=== PATIENT | female | born 1930 | race Two or more races ===

== ENCOUNTER 2017-08-25 12:11 | Inpatient (IN) | payer OTHER ==
[~2017-08-25] VITALS: Ht 152.4 cm; Wt 54.4 kg
[2017-08-25 12:48] VITALS: BP 100/42
[2017-08-25] MEDS ORDERED: HUMULIN R100 UNIT/1 SUBQ (13:17)
[2017-08-25] MEDS ORDERED: LOVENOX10 MG SUBQ (13:17)
[2017-08-25] MEDS ORDERED: SODIUM CITRATE MC (13:17)
[2017-08-25] MEDS ORDERED: SIMVASTATIN20 MG ORAL (13:17)
[2017-08-25] MEDS ORDERED: LOSARTAN POTASS25 MG ORAL (13:17)
[2017-08-25] MEDS ORDERED: ZOFRAN4 M3 ORAL (13:18)
--- NOTE | 2017-08-25 13:34 | Emergency Room Report ---
History of Present Illness General Chief Complaint: Abnormal Labs Source: Patient, Medical Record (Zully Avila DO) Present Illness HPI Patient presents from nursing facility with reports of anemia Patient is a poor historian however is able to report that she has had previous transfusions she does feel weaker than usual Denies any chest pain or shortness of breath has some increased fatigue with exertion Denies any abdominal pain denies any black stools or vomiting denies any recent trauma (Zully Avila DO) Allergies: Coded Allergies: No Known Allergies (Unverified , 08/25/17) Patient History Past Medical History: see triage record Pertinent Family History: none Reviewed Nursing Documentation: PMH: Agreed; PSxH: Agreed (Zully Avila DO) Nursing Documentation-PMH Hx Cardiac Problems: Yes - A-FIB Hx Hypertension: Yes - HYPERLIPEDEMA Hx Diabetes: Yes (Zully Avila DO) Review of Systems All Other Systems: negative except mentioned in HPI (Zully Avila DO) Physical Exam Vital Signs Date Time Temp Pulse Resp B/P (MAP) Pulse Ox O2 Delivery O2 Flow Rate FiO2 08/25/17 12:19 98.0 76 16 110/60 99 Room Air 98.1 Sp02 EP Interpretation: reviewed, normal General Appearance: no apparent distress Head: normocephalic, atraumatic Eyes: bilateral eye PERRL, bilateral eye EOMI, bilateral eye other - pale conjunctiva ENT: hearing grossly normal, normal pharynx, TMs + canals normal, uvula midline Neck: full range of motion, supple, no meningismus, no bony tend Respiratory: lungs clear, normal breath sounds, no rhonchi, no respiratory distress, no retraction, no accessory muscle use Cardiovascular #1: normal peripheral pulses, no edema, no gallop, no JVD, no murmur, irregularly irregular Gastrointestinal: normal bowel sounds, non tender, soft, no mass, no organomegaly, non-distended, no guarding, no hernia, no pulsatile mass, no rebound Genitourinary: no CVA tenderness Musculoskeletal: other - Moving both upper extremities without focal deficit Neurologic: responsive, sensory intact Psychiatric: mood/affect normal Skin: no rash, warm/dry, palpation normal, pallor Lymphatic: normal inspection, no adenopathy (uZlly Avila DO) Medical Decision Making Diagnostic Impression: Primary Impression: Symptomatic anemia Additional Impressions: Renal failure Hyperkalemia ER Course Patient is a fairly complex patient with multiple differential to consideration including but not limited to , intra-abdominal , GI pathology cardiac cardiopulmonary and vascular emergencies Patient's blood work obtained does reveal anemia patient has been typed and screened and requires further inpatient care Patient's kidney function also abnormal with hyperkalemia Patient however does have diarrhea already Labs Test 08/25/17 13:15 08/25/17 14:15 White Blood Count 9.5 K/UL (4.8-10.8) Red Blood Count 3.37 M/UL (4.20-5.40) Hemoglobin 8.1 G/DL (12.0-16.0) Hematocrit 26.7 % (37.0-47.0) Mean Corpuscular Volume 79 FL (80-99) Mean Corpuscular Hemoglobin 24.0 PG (27.0-31.0) Mean Corpuscular Hemoglobin Concent 30.3 G/DL (32.0-36.0) Red Cell Distribution Width 21.8 % (11.6-14.8) Platelet Count 797 K/UL (150-450) Mean Platelet Volume 5.6 FL (6.5-10.1) Neutrophils (%) (Auto) 77.3 % (45.0-75.0) Lymphocytes (%) (Auto) 14.5 % (20.0-45.0) Monocytes (%) (Auto) 6.8 % (1.0-10.0) Eosinophils (%) (Auto) 0.5 % (0.0-3.0) Basophils (%) (Auto) 0.9 % (0.0-2.0) Prothrombin Time 10.3 SEC (9.30-11.50) Prothromb Time International Ratio 1.0 (0.9-1.1) Activated Partial Thromboplast Time 30 SEC (23-33) Sodium Level 134 MMOL/L (136-145) Potassium Level 5.3 MMOL/L (3.5-5.1) Chloride Level 111 MMOL/L (98-107) Carbon Dioxide Level 15 MMOL/L (21-32) Anion Gap 8 mmol/L (5-15) Blood Urea Nitrogen 56 mg/dL (7-18) Creatinine 2.4 MG/DL (0.55-1.30) Estimat Glomerular Filtration Rate mL/min (>60) Glucose Level 109 MG/DL (74-106) Calcium Level 7.9 MG/DL (8.5-10.1) Total Bilirubin 0.2 MG/DL (0.2-1.0) Aspartate Amino Transf (AST/SGOT) 19 U/L (15-37) Alanine Aminotransferase (ALT/SGPT) 10 U/L (12-78) Alkaline Phosphatase 62 U/L (46-116) Total Creatine Kinase 50 U/L (26-308) Creatine Kinase MB 1.8 NG/ML (0.0-3.6) Creatine Kinase MB Relative Index 3.6 Troponin I 0.003 ng/mL (0.000-0.056) Total Protein 6.1 G/DL (6.4-8.2) Albumin 1.7 G/DL (3.4-5.0) Globulin 4.3 g/dL Lipase 122 U/L (73-393) (Zully Avila DO) ER Course Patient was noted to have evidence of acute kidney injury. The urinalysis showed evidence of infection.The patient was given IV antibiotics. EKG showed atrial fibrillation with a rate of [address] Nikolai Armendariz was contacted for inpatient management due to capitated physician Labs Test 08/25/17 13:15 08/25/17 14:15 White Blood Count 9.5 K/UL (4.8-10.8) Red Blood Count 3.37 M/UL (4.20-5.40) Hemoglobin 8.1 G/DL (12.0-16.0) Hematocrit 26.7 % (37.0-47.0) Mean Corpuscular Volume 79 FL (80-99) Mean Corpuscular Hemoglobin 24.0 PG (27.0-31.0) Mean Corpuscular Hemoglobin Concent 30.3 G/DL (32.0-36.0) Red Cell Distribution Width 21.8 % (11.6-14.8) Platelet Count 797 K/UL (150-450) Mean Platelet Volume 5.6 FL (6.5-10.1) Neutrophils (%) (Auto) 77.3 % (45.0-75.0) Lymphocytes (%) (Auto) 14.5 % (20.0-45.0) Monocytes (%) (Auto) 6.8 % (1.0-10.0) Eosinophils (%) (Auto) 0.5 % (0.0-3.0) Basophils (%) (Auto) 0.9 % (0.0-2.0) Prothrombin Time 10.3 SEC (9.30-11.50) Prothromb Time International Ratio 1.0 (0.9-1.1) Activated Partial Thromboplast Time 30 SEC (23-33) Sodium Level 134 MMOL/L (136-145) Potassium Level 5.3 MMOL/L (3.5-5.1) Chloride Level 111 MMOL/L (98-107) Carbon Dioxide Level 15 MMOL/L (21-32) Anion Gap 8 mmol/L (5-15) Blood Urea Nitrogen 56 mg/dL (7-18) Creatinine 2.4 MG/DL (0.55-1.30) Estimat Glomerular Filtration Rate mL/min (>60) Glucose Level 109 MG/DL (74-106) Calcium Level 7.9 MG/DL (8.5-10.1) Total Bilirubin 0.2 MG/DL (0.2-1.0) Aspartate Amino Transf (AST/SGOT) 19 U/L (15-37) Alanine Aminotransferase (ALT/SGPT) 10 U/L (12-78) Alkaline Phosphatase 62 U/L (46-116) Total Creatine Kinase 50 U/L (26-308) Creatine Kinase MB 1.8 NG/ML (0.0-3.6) Creatine Kinase MB Relative Index 3.6 Troponin I 0.003 ng/mL (0.000-0.056) Total Protein 6.1 G/DL (6.4-8.2) Albumin 1.7 G/DL (3.4-5.0) Globulin 4.3 g/dL Lipase 122 U/L (73-393) Urine Color Yellow Urine Appearance Very cloudy Urine pH 5 (4.5-8.0) Urine Specific [place] 1.020 (1.005-1.035) Urine Protein 2+ (NEGATIVE) Urine Glucose (UA) Negative (NEGATIVE) Urine Ketones Negative (NEGATIVE) Urine Occult Blood 3+ (NEGATIVE) Urine Nitrite Negative (NEGATIVE) Urine Bilirubin Negative (NEGATIVE) Urine Urobilinogen Normal MG/DL (0.0-1.0) Urine Leukocyte Esterase 3+ (NEGATIVE) Urine RBC 10-15 /HPF (0 - 2) Urine WBC Tntc /HPF (0 - 2) Urine Squamous Epithelial Cells Moderate /LPF (NONE/OCC) Urine Amorphous Sediment Many /LPF (NONE) Urine Bacteria Moderate /HPF (NONE) Urine Yeast Few /HPF (NONE) (Isaac Finn) Rhythm Strip Diag. Results EP Interpretation: yes Rate: 77 Rhythm: no PVC's, no ectopy, other - irregularly irregular (Zully Avila DO) Chest X-Ray Diagnostic Results Chest X-Ray Diagnostic Results : Chest X-Ray Ordered: Yes # of Views/Limited/Complete: 1 View Indication: Shortness of Breath EP Interpretation: Yes Interpretation: no consolidation, no pneumothorax, other - basilar atelectasis Impression: No acute disease Electronically Signed by: Zully Avila DO (Zully Avila DO) Last Vital Signs Date Time Temp Pulse Resp B/P (MAP) Pulse Ox O2 Delivery O2 Flow Rate FiO2 08/25/17 12:48 74 13 100/42 100 Room Air 08/25/17 12:19 98.0 98.1 Status: improved (Zully Avila DO) Status: unchanged (Isaac Finn) Disposition: ADMITTED INPATIENT Condition: Serious Zully Avila DO Aug 25, 2017 13:34 Isaac Finn Aug 25, 2017 15:11
[2017-08-25 13:40] LABS: BASOPHILS % (AUTO) 0.9 % (0.0-2.0); EOSINOPHILS % (AUTO) 0.5 % (0.0-3.0); HEMATOCRIT 26.7 % (37.0-47.0); HEMOGLOBIN 8.1 G/DL (12.0-16.0); LYMPHOCYTES % (AUTO) 14.5 % (20.0-45.0); MEAN CORPUSCULAR VOLUME 79 FL (80-99); MONOCYTES % (AUTO) 6.8 % (1.0-10.0); NEUTROPHILS % (AUTO) 77.3 % (45.0-75.0); PLATELET COUNT 797 K/UL (150-450); RED BLOOD COUNT 3.37 M/UL (4.20-5.40); RED CELL DISTRIBUTION WIDTH 21.8 % (11.6-14.8); WHITE BLOOD COUNT 9.5 K/UL (4.8-10.8)
[2017-08-25 13:58] LABS: ANION GAP 8 mmol/L (5-15); BLOOD UREA NITROGEN 56 mg/dL (7-18); CALCIUM 7.9 MG/DL (8.5-10.1); CARBON DIOXIDE 15 MMOL/L (21-32); CHLORIDE 111 MMOL/L (98-107); CREATININE 2.4 MG/DL (0.55-1.30); POTASSIUM 5.3 MMOL/L (3.5-5.1); SODIUM 134 MMOL/L (136-145)
[2017-08-25 14:10] LABS: ALANINE AMINOTRANSFERASE 10 U/L (12-78); ALKALINE PHOSPHATASE 62 U/L (46-116); ASPARTATE AMINO TRANSFERASE 19 U/L (15-37); BILIRUBIN,TOTAL 0.2 MG/DL (0.2-1.0); CKMB 1.8 NG/ML (0.0-3.6); CREATINE KINASE 50 U/L (26-308)
[2017-08-25 14:17] LABS: ALBUMIN 1.7 G/DL (3.4-5.0)
[2017-08-25 14:34] LABS: APPEARANCE,URINE VERY CLOUDY; BILIRUBIN, URINE NEGATIVE (NEGATIVE); COLOR,URINE YELLOW; GLUCOSE, URINE (UA) NEGATIVE (NEGATIVE); KETONES,URINE NEGATIVE (NEGATIVE); LEUKOCYTE ESTERASE ,URINE 3+ (NEGATIVE); NITRITE,URINE NEGATIVE (NEGATIVE); PH,URINE 5 (4.5-8.0); PROTEIN,URINE 2+ (NEGATIVE); UROBILINOGEN,URINE NORMAL MG/DL (0.0-1.0)
--- NOTE | 2017-08-25 14:43 | Diagnostic Imaging Report ---
Indication: Reason For Exam: CP Technique: One view of the chest Comparison: none Findings: The patient is rotated to the right. There is atelectasis at the right lung base. The remaining lungs and pleural spaces are clear. The heart size is normal. The aorta is tortuous and ectatic Impression: Right basilar atelectasis No acute process otherwise
[2017-08-25 14:47] VITALS: BP 97/52
[2017-08-25] MEDS ORDERED: cefTRIAXone 1 GM in NS 55 ML IVPB ONE (15:30)
[2017-08-25 16:49] VITALS: BP 112/60
[2017-08-25 18:31] VITALS: BP 145/65
[2017-08-25 20:00] VITALS: BP 135/68
[2017-08-25] MEDS: NovoLOG Insulin Flexpen SUBQ SCH (20:33)
--- NOTE | 2017-08-25 22:46 | History and Physical Report ---
DATE OF ADMISSION: 08/25/2017 CHIEF COMPLAINT: Abnormal laboratories. HISTORY OF PRESENT ILLNESS: The patient was transferred here from a [facility] because of anemia. She was evaluated and found to have urinary tract infection. She is a poor historian. Admission was arranged. PAST MEDICAL HISTORY: Records are limited. She has a history of atrial fibrillation and hyperlipidemia as well as diabetes. MEDICATIONS: Reviewed and reconciled. ALLERGIES: No known allergies. REVIEW OF SYSTEMS: Cannot be obtained. She is evidently bed ridden and has sores on her feet and is contracted. PHYSICAL EXAMINATION: GENERAL: The patient is alert and mumbling. She appears thin and malnourished. VITAL SIGNS: The vital signs are stable. She has no high fever. SKIN: Warm and dry. HEENT: The head is normocephalic with temporal muscle wasting. NECK: No jugular venous distention. CHEST: Clear. CARDIAC: Rhythm is regular at this time. ABDOMEN: Soft and nontender. EXTREMITIES: There are contractions of the knees and ankles. Both feet have dressings in place. LABORATORY AND DIAGNOSTIC DATA: The laboratory studies show hemoglobin is 8.1, hematocrit 26.7, and platelet count is 797,000, and white count is normal. Chemistry shows sodium 134, potassium 5.3, bicarbonate is 15, BUN 56, and creatinine 2.4. Albumin is 1.7. Urinalysis shows too numerous to count white cells. IMPRESSIONS: 1. Moderate anemia likely due to chronic renal disease. 2. Urinary tract infection with borderline hypotension. 3. Chronic kidney disease, stage 4 with creatinine 2.4 in an 86-year-old woman. 4. Metabolic acidosis, likely due to renal disease. 5. Severe protein-calorie malnutrition with albumin 1.7. 6. Contractures. 7. Dementia. PLAN: The patient will be given IV fluids and antibiotics. Nephrology consultation will be requested. She does not require transfusion at this time. Nikolai Armendariz M.D. DR: MIRANDA JOB#: [id number] CC:
[2017-08-26] VITALS (7 sets, daily range): BP systolic 98–117; BP diastolic 51–70
[2017-08-26] MEDS: NovoLOG Insulin Flexpen SUBQ SCH ×4 (06:30→21:00)
[2017-08-26 07:37] LABS: HEMATOCRIT 23.6 % (37.0-47.0); HEMOGLOBIN 7.3 G/DL (12.0-16.0); MEAN CORPUSCULAR VOLUME 79 FL (80-99); PLATELET COUNT 753 K/UL (150-450); RED BLOOD COUNT 2.99 M/UL (4.20-5.40); RED CELL DISTRIBUTION WIDTH 21.3 % (11.6-14.8); WHITE BLOOD COUNT 9.1 K/UL (4.8-10.8)
[2017-08-26 08:00] LABS: ALANINE AMINOTRANSFERASE 10 U/L (12-78); ALBUMIN 1.5 G/DL (3.4-5.0); ALBUMIN/GLOBULIN RATIO 0.4 (1.0-2.7); ALKALINE PHOSPHATASE 55 U/L (46-116); ANION GAP 11 mmol/L (5-15); ASPARTATE AMINO TRANSFERASE 12 U/L (15-37); BILIRUBIN,TOTAL 0.2 MG/DL (0.2-1.0); BLOOD UREA NITROGEN 55 mg/dL (7-18); CALCIUM 7.5 MG/DL (8.5-10.1); CARBON DIOXIDE 16 MMOL/L (21-32); CHLORIDE 112 MMOL/L (98-107); CHOLESTEROL 115 MG/DL (< 200); CREATININE 2.2 MG/DL (0.55-1.30); FERRITIN 229 NG/ML (8-388); HDL CHOLESTEROL 91 MG/DL (40-60); POTASSIUM 4.5 MMOL/L (3.5-5.1); SODIUM 139 MMOL/L (136-145); TRIGLYCERIDES 59 MG/DL (30-150)
[2017-08-26 08:59] LABS: % IRON SATURATION 17 % (15-50); IRON 25 ug/dL (50-175); TOTAL IRON BINDING CAPACITY 144 ug/dL (250-450)
[2017-08-26 09:00] LABS: CREATINE KINASE 29 U/L (26-308)
--- NOTE | 2017-08-26 10:03 | Diagnostic Imaging Report ---
Indication: Pain Technique: 2 views of the left tibia and fibula Comparison: none Findings: Exam is limited due to lack of true AP view; per technologist, patient was difficult to position due to presence of restraints. There are old healed fracture deformities of the mid shaft tibia and fibula with angulation and very expansile callus formation. There is also an old healed fracture deformity of the fibular neck. The bones are osteoporotic. No acute fractures. No definite osseous erosions. Impression: Limited exam, as described No evidence of acute bony trauma No definite plain radiographic evidence of osteomyelitis. Note, however, limited sensitivity of plain films for such. Consider MRI or bone scan for further evaluation if there is high clinical suspicion Old healed fracture formation is, as described Osteoporosis
--- NOTE | 2017-08-26 11:36 | Diagnostic Imaging Report ---
Indication: Abnormal renal function tests Technique: Grayscale and duplex images of the kidneys, retroperitoneum, and bladder were obtained. Comparison: none Findings: Right kidney measures 9.1 cm in length. Left kidney measures 8.4 cm in length. Right kidney demonstrates normal echogenicity. Left kidney demonstrates equivocally increased echogenicity. No hydronephrosis. Cysts are seen bilaterally.. Normal inferior vena cava. Bladder demonstrates volume of 108 mL. Patient was unable to void at the time of exam. Incidentally noted is a 6.3 cm cyst adjacent to the uterus. Impression: Negative for hydronephrosis Equivocally increased left renal echogenicity, could indicate medical renal disease Incidental finding of 6.3 cm cyst adjacent to the uterus. Most likely an ovarian cyst. Further evaluation with pelvic and endovaginal ultrasound is recommended 180 mL bladder volume. Patient unable to void Incidental finding bilateral renal cysts.
--- NOTE | 2017-08-26 13:55 | General Progress Note ---
Assessment/Plan Assessment/Plan 1. Moderate anemia likely due to chronic renal disease. 2. Urinary tract infection with borderline hypotension. 3. Chronic kidney disease, stage 4 with creatinine 2.4 in an 86-year-old woman. 4. Metabolic acidosis, likely due to renal disease. 5. Severe protein-calorie malnutrition with albumin 1.7. 6. Contractures. 7. Dementia Hgb lower; may need transfusion check stool OB UTI rx PO poor; may need GT cont IVF Subjective ROS Limited/Unobtainable: Yes Allergies: Coded Allergies: No Known Allergies (Unverified , 08/25/17) Objective Last 24 Hour Vital Signs Date Time Temp Pulse Resp B/P (MAP) Pulse Ox O2 Delivery O2 Flow Rate FiO2 08/26/17 12:00 95.4 77 18 104/57 99 95.4 08/26/17 08:00 96.1 76 19 99/57 98 96.1 08/26/17 04:44 98.2 69 20 98/55 98 Room Air 98.2 08/26/17 00:44 96.8 84 18 108/58 98 Room Air 96.8 08/26/17 00:00 96.1 90 18 96.1 08/26/17 00:00 96.1 90 18 98/54 98 96.1 08/25/17 20:00 97.0 65 20 135/68 96 Room Air 97.0 08/25/17 18:31 86 20 145/65 97 08/25/17 17:45 97.1 66 13 112/60 100 Room Air 97.1 08/25/17 16:49 66 13 112/60 100 Room Air 08/25/17 14:47 97.1 66 15 97/52 100 Room Air 97.1 Intake and Output 08/25/17 08/26/17 19:00 07:00 Intake Total 0 ml 1020 ml Output Total 400 ml Balance 0 ml 620 ml Intake Oral 0 ml 120 ml IV Total 900 ml Output Urine Total 400 ml Laboratory Tests 08/25/17 14:15: Urine Color Yellow, Urine Appearance Very cloudy, Urine pH 5, Urine Specific [place] 1.020, Urine Protein 2+H, Urine Glucose (UA) Negative, Urine Ketones Negative, Urine Occult Blood 3+H, Urine Nitrite Negative, Urine Bilirubin Negative, Urine Urobilinogen Normal, Urine Leukocyte Esterase 3+H, Urine RBC 10- 15H, Urine WBC TntcH, Urine Squamous Epithelial Cells ModerateH, Urine Amorphous Sediment ManyH, Urine Bacteria ModerateH, Urine Yeast FewH 08/26/17 05:00: White Blood Count 9.1, Red Blood Count 2.99L, Hemoglobin 7.3L, Hematocrit 23.6L , Mean Corpuscular Volume 79L, Mean Corpuscular Hemoglobin 24.6L, Mean Corpuscular Hemoglobin Concent 31.2L, Red Cell Distribution Width 21.3H, Platelet Count 753H, Mean Platelet Volume 5.3L, Neutrophils (%) (Auto) , Lymphocytes (%) (Auto) , Monocytes (%) (Auto) , Eosinophils (%) (Auto) , Basophils (%) (Auto) , Differential Total Cells Counted 100, Neutrophils % ( Manual) 84H, Lymphocytes % (Manual) 7L, Monocytes % (Manual) 3, Eosinophils % ( Manual) 1, Basophils % (Manual) 3H, Band Neutrophils 2, Platelet Estimate IncreasedH, Platelet Morphology Normal, Anisocytosis 1+, Ovalocytes 1+, Acanthocytes 2+, Sodium Level 139, Potassium Level 4.5, Chloride Level 112H, Carbon Dioxide Level 16L, Anion Gap 11, Blood Urea Nitrogen 55H, Creatinine 2.2H , Estimat Glomerular Filtration Rate , Glucose Level 83, Hemoglobin A1c 6.7H, Uric Acid 11.8H, Calcium Level 7.5L, Iron Level 25L, Total Iron Binding Capacity 144L, Percent Iron Saturation 17, Unsaturated Iron Binding 119, Ferritin 229, Total Bilirubin 0.2, Aspartate Amino Transf (AST/SGOT) 12L, Alanine Aminotransferase (ALT/SGPT) 10L, Alkaline Phosphatase 55, Total Creatine Kinase 29, Total Protein 5.5L, Albumin 1.5L, Globulin 4.0, Albumin/ Globulin Ratio 0.4L, Triglycerides Level 59, Cholesterol Level 115, LDL Cholesterol 24, HDL Cholesterol 91H, Cholesterol/HDL Ratio 1.3L, Vitamin B12 Level 628, Thyroid Stimulating Hormone (TSH) 1.076 Height (Feet): 5 Height (Inches): 0.00 Weight (Pounds): 120 General Appearance: no apparent distress, cachetic Neck: normal alignment Cardiovascular: normal rate Respiratory/Chest: lungs clear Nikolai Armendariz MD Aug 26, 2017 13:55
[2017-08-26] MEDS ORDERED: cefTRIAXone 1 GM in NS 55 ML IVPB SCH (16:30)
[2017-08-26] MEDS: Sodium Citrate 30ml ORAL SCH ×2 (16:51→17:14)
--- NOTE | 2017-08-26 20:46 | Wound Care Consultation ---
Wound Assessment Wound Assessment #1: Wound Number: 1 Wound Present on Admission: Yes New Wound: No Status Change of Wound: No Wound Location Body Site Modif: mid Wound Location Body Site: other - sacrococcygeal Wound Type: pressure ulcer Pancho Test: Does not Pancho Pressure Ulcer Stage: Deep Tissue Injury Wound Thickness: Full Thickness Wound Length: 7.5 Wound Width: 6.5 Wound Depth: utd Percent of Wound Purple/Maroon: 100 Wound Drainage Amount: None Wound Drainage Odor: None/Absent Tissue Surrounding Wound: Erythemic Wound General Appearance: Reddened - purple/maroon Wound Assessment #2: Wound Number: 2 Wound Present on Admission: Yes New Wound: No Status Change of Wound: No Wound Location Body Site: perineal area Wound Type: chemical burn Pancho Test: Does not Pancho Percent of Wound [place]/Red: 100 Wound Drainage Amount: None Wound Drainage Odor: None/Absent Tissue Surrounding Wound: Erythemic Wound General Appearance: Reddened Wound Assessment #3: Wound Number: 3 Wound Present on Admission: Yes New Wound: No Status Change of Wound: No Wound Location Body Site Modif: left Wound Location Body Site: metatarsal head - 1st Wound Type: pressure ulcer Pancho Test: Does not Pancho Pressure Ulcer Stage: Deep Tissue Injury Wound Thickness: Full Thickness Wound Length: 4.5 Wound Width: 4.5 Wound Depth: utd Percent of Wound Purple/Maroon: 100 Wound Drainage Amount: None Wound Drainage Odor: None/Absent Tissue Surrounding Wound: Erythemic Wound General Appearance: Reddened - maroon Wound Assessment #4: Wound Number: 4 Wound Present on Admission: Yes New Wound: No Status Change of Wound: No Wound Location Body Site Modif: right Wound Location Body Site: metatarsal head - 1st Wound Type: pressure ulcer Pancho Test: Does not Pancho Pressure Ulcer Stage: Deep Tissue Injury Wound Thickness: Full Thickness Wound Length: 4.5 Wound Width: 4.5 Wound Depth: utd Percent of Wound Purple/Maroon: 100 Wound Drainage Amount: None Wound Drainage Odor: None/Absent Tissue Surrounding Wound: Erythemic Wound General Appearance: Reddened - maroon/purple Wound Assessment #5: Wound Number: 5 Wound Present on Admission: Yes New Wound: No Status Change of Wound: No Wound Location Body Site Modif: left Wound Location Body Site: metatarsal head - 5th Wound Type: pressure ulcer Pancho Test: Does not Pancho Pressure Ulcer Stage: Deep Tissue Injury Wound Thickness: Full Thickness Wound Length: 2.0 Wound Width: 2.0 Wound Depth: utd Percent of Wound Purple/Maroon: 100 Wound Drainage Amount: None Wound Drainage Odor: None/Absent Tissue Surrounding Wound: Erythemic Wound General Appearance: Reddened - maroon Wound Assessment #6: Wound Number: 6 Wound Present on Admission: Yes New Wound: No Status Change of Wound: No Wound Location Body Site Modif: right Wound Location Body Site: metatarsal head - 5th Wound Type: pressure ulcer Pancho Test: Does not Pancho Pressure Ulcer Stage: Deep Tissue Injury Wound Thickness: Full Thickness Wound Length: 2.0 Wound Width: 2.0 Wound Depth: utd Percent of Wound Purple/Maroon: 100 Wound Drainage Amount: None Wound Drainage Odor: None/Absent Tissue Surrounding Wound: Erythemic Wound General Appearance: Reddened - maroon Wound Assessment #7: Wound Number: 7 Wound Present on Admission: Yes New Wound: No Status Change of Wound: No Wound Location Body Site Modif: left, lateral Wound Location Body Site: toe - 5th Wound Type: pressure ulcer Pancho Test: Does not Pancho Pressure Ulcer Stage: Deep Tissue Injury Wound Thickness: Full Thickness Wound Length: 2.5 Wound Width: 2.0 Wound Depth: utd Percent of Wound Black/Brown: 100 Wound Drainage Amount: None Wound Drainage Odor: None/Absent Tissue Surrounding Wound: Erythemic Wound General Appearance: Reddened - brown Wound Assessment #8: Wound Number: 8 Wound Present on Admission: Yes New Wound: No Status Change of Wound: No Wound Location Body Site Modif: right, lateral Wound Location Body Site: toe - 5th Wound Type: pressure ulcer Pancho Test: Does not Pancho Pressure Ulcer Stage: Deep Tissue Injury Wound Thickness: Full Thickness Wound Length: 1.5 Wound Width: 1.5 Wound Depth: utd Percent of Wound Black/Brown: 50 Percent of Wound Purple/Maroon: 50 Wound Drainage Amount: None Wound Drainage Odor: None/Absent Tissue Surrounding Wound: Erythemic Wound General Appearance: Reddened - maroon Wound Assessment #9: Wound Number: 9 Wound Present on Admission: Yes New Wound: No Status Change of Wound: No Wound Location Body Site Modif: left Wound Location Body Site: heel Wound Type: pressure ulcer Pancho Test: Does not Pancho Pressure Ulcer Stage: Deep Tissue Injury Wound Thickness: Full Thickness Wound Length: 4.5 Wound Width: 4.5 Wound Depth: utd Percent of Wound Purple/Maroon: 100 Wound Drainage Amount: None Wound Drainage Odor: None/Absent Tissue Surrounding Wound: Erythemic Wound General Appearance: Reddened - purple Wound Assessment #10: Wound Number: 10 Wound Present on Admission: Yes New Wound: No Status Change of Wound: No Wound Location Body Site Modif: right Wound Location Body Site: heel Wound Type: pressure ulcer Pancho Test: Does not Pancho Pressure Ulcer Stage: Deep Tissue Injury Wound Thickness: Full Thickness Wound Length: 4.5 Wound Width: 4.5 Wound Depth: utd Percent of Wound Purple/Maroon: 100 Wound Drainage Amount: None Wound Drainage Odor: None/Absent Tissue Surrounding Wound: Erythemic Wound General Appearance: Reddened - purple Wound Assessment #11: Wound Number: 11 Wound Present on Admission: Yes New Wound: No Status Change of Wound: No Wound Location Body Site Modif: left, dorsal Wound Location Body Site: foot Wound Type: pressure ulcer Pancho Test: Does not Pancho Pressure Ulcer Stage: Deep Tissue Injury Wound Thickness: Full Thickness Wound Length: 3.0 Wound Width: 1.5 Wound Depth: utd Percent of Wound Purple/Maroon: 100 Wound Drainage Amount: None Wound Drainage Odor: None/Absent Tissue Surrounding Wound: Erythemic Wound General Appearance: Reddened - maroon Wound Assessment #12: Wound Number: 12 Wound Present on Admission: Yes New Wound: No Status Change of Wound: No Wound Location Body Site Modif: left Wound Location Body Site: buttocks Wound Type: pressure ulcer Pancho Test: Does not Pancho Pressure Ulcer Stage: Deep Tissue Injury - SDTI Wound Thickness: Full Thickness Wound Length: 4.5 Wound Width: 3.5 Wound Depth: utd Percent of Wound [place]/Red: 100 - Deep Wound Drainage Amount: None Wound Drainage Odor: None/Absent Tissue Surrounding Wound: Erythemic Wound General Appearance: Reddened - deep red Wound Assessment #13: Wound Number: 13 Wound Present on Admission: Yes New Wound: No Status Change of Wound: No Wound Location Body Site Modif: right Wound Location Body Site: buttocks Wound Type: pressure ulcer Pancho Test: Does not Pancho Pressure Ulcer Stage: Deep Tissue Injury - SDTI Wound Thickness: Full Thickness Wound Length: 4.5 Wound Width: 3.5 Wound Depth: utd Percent of Wound Purple/Maroon: 100 Wound Drainage Amount: None Wound Drainage Odor: None/Absent Tissue Surrounding Wound: Erythemic Wound General Appearance: Reddened - Deep red Wound Comment #1 Sacrococcygeal DTI pressure ulcer #2 Left buttock SDTI pressure ulcer #3 Right buttock SDTI pressure ulcer #4 Left 1st metatarsal head DTI pressure ulcer #5 Right 1st metatarsal head DTI pressure ulcer #6 Left 5th metatarsal head DTI pressure ulcer #7 Right 5th metatarsal head DTI pressure ulcer #8 Right lateral 5th toe DTI pressure ulcer #9 Left lateral 5th toe DTI pressure ulcer #10 Left heel DTI pressure ulcer #11 Right heel DTI pressure ulcer #12 Left dorsal foot DTI pressure ulcer #13 Chemical burn on perineal area Recommendation -Local wound care per protocol -Keep clean and dry -Optimize nutrition -Turn and reposition -Low air loss mattress -Offload both heels -Heel protector on both heels -Assess and f/u accordingly for any changes ANGELINA CAMPA RN Aug 26, 2017 20:46
[2017-08-26] MEDS ORDERED: Epogen (for ESRD on dialysis) SUBQ SCH (21:00)
[2017-08-26] MEDS ORDERED: Iron Sucrose 100 MG in NS 55 ML IV SCH (21:00)
--- NOTE | 2017-08-26 22:30 | Consultation ---
DATE OF CONSULTATION: 08/26/2017 NEPHROLOGY CONSULTATION CONSULTING PHYSICIAN: Ender Acosta M.D. REFERRING PHYSICIAN: Nikolai Armendariz M.D. REASON FOR CONSULTATION: Elevated BUN and creatinine. HISTORY OF PRESENT ILLNESS: The patient has advanced dementia and unable to give history. She was apparently sent to the hospital because of abnormal labs. BUN 58, creatinine 2.32, hemoglobin 7.1 in the [facility]. She is a resident of [facility] with dementia, hypertension, diabetes, chronic atrial fibrillation, chronic kidney disease. Chart was reviewed. She was hospitalized at [facility] July 30, 2017 for apparently nausea, vomiting, poor oral intake. At that time, there was a concern of bowel obstruction. She had BUN of 71 and creatinine 3.7, came down to 53 and 2.7. I do not have the final BUN and creatinine from the hospitalization. Apparently, she has chronic kidney disease. She has had UTIs in the past. She has anorexia, poor oral intake, and malnutrition. PAST MEDICAL HISTORY AND REVIEW OF SYSTEMS: The patient is really unable to give a history. It is only taken from chart review. HABITS: Per chart, nondrinker and nonsmoker. MEDICATIONS: At the [facility] include sliding scale Humulin, Lovenox, losartan, simvastatin, sodium citrate, and Zofran. PHYSICAL EXAMINATION: GENERAL: The patient is lying in bed, in no acute distress, alert but confused. She is a thin, cachectic appearing elderly lady. VITAL SIGNS: Temperature 95.4, pulse 77, respirations 18, and blood pressure 104/57. HEENT: Oral mucosa appears to be dry. Sclerae are nonicteric. Ocular motions intact in all directions. NECK: No adenopathy. LUNGS: Clear. HEART: Rhythm is irregular. I hear no murmur. ABDOMEN: Soft without organomegaly or masses. EXTREMITIES: No edema, cyanosis, or clubbing. SKIN: Shows some multiple wounds on the extremities. PERTINENT LABORATORY DATA: Show white count of 9.1, hemoglobin 7.3. Sodium 139, potassium 4.5, chloride 112, CO2 16, BUN 55, creatinine 2.2. Uric acid is 11.8. Calcium 7.5. Ferritin 229, T-sat 17%. Liver enzymes negative. Albumin 1.5. TSH 1.076. Urinalysis has too numerous to count white cells, 2+ protein. IMPRESSION: 1. Chronic kidney disease likely stage 4 or 5. 2. Dehydration. 3. Metabolic acidosis. 4. Pyuria. 5. Presumably urinary tract infection. 6. [id number]-hbqbzm protein-calorie malnutrition. 7. History of atrial fibrillation. 8. History of diarrhea. 9. Anemia likely anemia of chronic kidney disease plus iron deficiency. PLAN: The patient be hydrated and given antibiotics for urinary tract infection. I will give her Epogen and iron while in the hospital. At this time review of her underlying chronic medical problems. I doubt that she is a good candidate for dialysis even if her is very low. Thank you so much for allowing me to participate in the care of the patient. Ender Acosta M.D. DR: Caden JOB#: [id number] CC:
[2017-08-27] VITALS: BP 104/61
[2017-08-27] MEDS: Sodium Citrate 30ml ORAL SCH ×4 (00:56→18:00)
[2017-08-27 04:00] VITALS: BP 97/50
[2017-08-27] MEDS: NovoLOG Insulin Flexpen SUBQ SCH ×3 (06:00→16:30)
[2017-08-27 07:49] LABS: HEMATOCRIT 24.9 % (37.0-47.0); HEMOGLOBIN 7.9 G/DL (12.0-16.0); MEAN CORPUSCULAR VOLUME 79 FL (80-99); PLATELET COUNT 835 K/UL (150-450); RED BLOOD COUNT 3.14 M/UL (4.20-5.40); RED CELL DISTRIBUTION WIDTH 21.7 % (11.6-14.8); WHITE BLOOD COUNT 9.4 K/UL (4.8-10.8)
[2017-08-27 08:00] VITALS: BP 100/52
[2017-08-27 12:00] VITALS: BP 108/59
[2017-08-27] MEDS ORDERED: PROCRIT20000 UNI2 SUBQ (15:12)
[2017-08-27] MEDS ORDERED: FEROSUL325 M1 PO (15:12)
[2017-08-27 15:52] VITALS: BP 115/67
[2017-08-27] MEDS ORDERED: cefTRIAXone 1 GM in NS 110 ML IVPB SCH (16:30)
[2017-08-27] MEDS ORDERED: Tubing IV Secondary IV ONE (17:32)
[2017-08-27] MEDS ORDERED: Iron Sucrose 100 MG in NS 110 ML IV SCH (21:00)
--- NOTE | 2017-08-28 04:30 | Discharge Summary ---
DATE OF ADMISSION: 08/25/2017 DATE OF DISCHARGE: 08/27/2017 PERTINENT HISTORY: The patient is a resident of an [facility], 86-year-old, who was sent here because of a questionable UTI and anemia. There is a prior history of atrial fibrillation, hyperlipidemia, and diabetes. PERTINENT PHYSICAL FINDINGS: See the note by Dr. Armendariz. HEAD EYES, EARS, NOSE, AND THROAT: Normocephalic with temporal muscle wasting. LUNGS: Clear. HEART: Regular rhythm. ABDOMEN: Soft and nontender. EXTREMITIES: Show contractures in the knees and ankles. NEUROLOGIC: She is alert, confused. COURSE IN THE HOSPITAL: The patient was hydrated. BUN 56, creatinine 2.4, improved to 55 and 2.2. Prior chart showed evidence of chronic kidney disease. Her hemoglobin serially 8.1, 7.3, and 7.9. There is no obvious bleeding. The patient was confused and cachectic. Family could not be reached during the time she was here. It was felt that her anemia was due to chronic kidney disease and she could be treated with Procrit. The underlying chronic problems could be addressed by her regular physician at the [facility] who does not come to [facility]. FINAL DIAGNOSES: 1. Chronic kidney disease stage 5. 2. Anemia of chronic kidney disease. 3. Moderate protein-calorie malnutrition. 4. Diabetes. 5. Failure to thrive. 6. Questionable urinary tract infection, culture negative on arrival. DISCHARGE DISPOSITION: To the [facility] on a pureed diet. MEDICATIONS: Per the discharge medication list. FOLLOWUP: Followup by her primary physician at the [facility]. Ender Acosta M.D. DR: German JOB#: [id number] CC:
== END 2017-08-27 18:24 | DRG 698 ==
LOC: EDBD 12:11 → EMR 13:00 → 4W 14:50 → EDBEDREQ 15:10 → 4W 08-27 07:40
DX: E11.22 Type 2 diabetes mellitus with diabetic chronic kidney disease (principal); E43 Unspecified severe protein-calorie malnutrition; E87.2 Acidosis; F03.90 Unspecified dementia, unspecified severity, without behavioral disturbance, psychotic disturbance, mood disturbance, and anxiety; E86.0 Dehydration; N39.0 Urinary tract infection, site not specified; I12.0 Hypertensive chronic kidney disease with stage 5 chronic kidney disease or end stage renal disease; N18.5 Chronic kidney disease, stage 5; D63.1 Anemia in chronic kidney disease; R62.7 Adult failure to thrive; Z79.4 Long term (current) use of insulin; M24.50 Contracture, unspecified joint; D50.9 Iron deficiency anemia, unspecified
CPT/HCPCS: 36415; 71045; 76770; 80053; 80061; 81003; 82270; 82550; 82553; 82607; 82728; 82962; 83036; 83540; 83550; 83690; 84443; 84484; 84550; 85007; 85025; 85610; 85730; 86850; 86900; 86901; 87081; 87086; 87324; 93005; 99285; J1815